=== PATIENT | male | born 1970 | race Caucasian/White ===

== ENCOUNTER 2024-04-15 08:26 | Outpatient (CLI) | payer BC | END 2024-04-15 08:27 | disposition home or self-care (01) | LOC: CSHULT 08:26 | PROVIDERS: ATTEND Internal Medicine | DX: K75.4 Autoimmune hepatitis (principal); Z12.11 Encounter for screening for malignant neoplasm of colon; K76.9 Liver disease, unspecified | CPT/HCPCS: 76700 ==

== ENCOUNTER 2024-05-08 09:28 | Outpatient (CLI) | payer BC ==
[~2024-05-08 09:28] MED LIST: Magnevist 469MG/ML 20 ML VIAL ONE
== END 2024-05-08 09:29 | disposition home or self-care (01) ==
LOC: CSHMRI 09:28
PROVIDERS: ATTEND Internal Medicine
DX: K86.9 Disease of pancreas, unspecified (principal); K76.0 Fatty (change of) liver, not elsewhere classified
CPT/HCPCS: 74183; 82565